=== PATIENT | male | born 1960 | race Two or more races ===

== ENCOUNTER 2019-07-02 03:35 | Emergency (ER) | payer OTHER ==
[~2019-07-02] VITALS: Ht 177.8 cm; Wt 76.7 kg
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
--- NOTE | 2019-07-02 03:52 | NUR ---
MANAGER FREELANCE AT BEDSIDE FOR LABS
[2019-07-02 03:58] LABS: BASOPHILS # (AUTO) 0.1 /CMM (0.0-0.2); BASOPHILS % (AUTO) 0.8 % (0.0-2.0); EOSINOPHILS % (AUTO) 0.4 % (0.0-6.0); HEMATOCRIT 44 % (39-51); HEMOGLOBIN 14.5 g/dL (13.5-17.5); LYMPHOCYTES # (AUTO) 2.2 /CMM (0.8-4.8); LYMPHOCYTES % (AUTO) 24.1 % (20.0-44.0); MEAN CORPUSCULAR HGB CONC 33 g/dl (31.0-36.0); MEAN CORPUSCULAR VOLUME 105 fL (80-96); MONOCYTES # (AUTO) 0.7 /CMM (0.1-1.30); MONOCYTES % (AUTO) 8.1 % (2.0-12.0); NEUTROPHILS # (AUTO) 6.1 /CMM (1.8-8.9); NEUTROPHILS % (AUTO) 66.6 % (43.0-81.0); PLATELET COUNT (AUTO) 295 /CMM (150-450); RED BLOOD CELL COUNT(AUTO) 4.15 MIL/uL (4.5-6.0); WHITE BLOOD COUNT (AUTO) 9.1 K/uL (4.3-11.0)
[2019-07-02 04:06] LABS: CALCIUM, SERUM 8.8 mg/dL (8.5-10.1); CARBON DIOXIDE 12 mmol/L (21-32); CHLORIDE 102 mmol/L (98-107); CREATININE 1.3 mg/dL (0.6-1.3); GLUCOSE 292 mg/dL (74-106); POTASSIUM 4.5 mmol/L (3.5-5.1); SODIUM SERUM 139 mmol/L (136-145); UREA NITROGEN, BLOOD 17 mg/dL (7-18)
[2019-07-02 04:22] LABS: ALANINE AMINOTRANSFERASE 43 U/L (12-78); ALBUMIN 4.1 g/dL (3.4-5.0); ALCOHOL, BLOOD < 3 mg/dL (0-0); ALKALINE PHOSPHATASE 85 U/L (46-116); ASPARTATE AMINOTRANSFERASE 40 U/L (15-37); BILIRUBIN,DIRECT 0.2 mg/dL (0.0-0.2); BILIRUBIN,TOTAL 0.9 mg/dL (0.2-1.0); TOTAL PROTEIN, SERUM 7.6 g/dL (6.4-8.2)
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
[2019-07-02 04:33] LABS: ACETAMINOPHEN 0 ug/ml (10-30); SALICYLATE 0.9 mg/dL (2.8-20.0)
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
--- NOTE | 2019-07-02 04:50 | NUR ---
NOTED ABRASION ON LEFT WRIST DUE TO HAND CUFFS.
[2019-07-02 04:54] LABS: APPEARANCE,URINE Clear (CLEAR); BILIRUBIN,URINE Negative (NEGATIVE); BLOOD, URINE Moderate Ery/uL (NEGATIVE); COLOR,URINE Yellow (YELLOW); KETONES,URINE 15 (NEGATIVE); LEUKOCYTE ESTERASE ,URINE Negative (NEGATIVE); NITRITE, URINE Positive (NEGATIVE); PROTEIN,URINE 100 mg/dl (NEGATIVE); UGLUCOSE 250 MG/DL mg/dL (NEGATIVE)
--- NOTE | 2019-07-02 05:12 | NUR ---
Patient is resting comfortably in bed. Easily aroused.
--- NOTE | 2019-07-02 05:30 | NUR ---
RESTRAIN REDUCED TO ONE POINT PT COAPERATIVE AND COMPLIANT. NO ACUTE DISTRESS NOTED.
[2019-07-02 05:51] LABS: BACTERIA,URINE Few /HPF (None Seen); RBC,URINE 21-50 /HPF (0-2); SQUAMOUS EPITHELIAL CELL,UR Rare /HPF (None Seen); WBC,URINE TOO NUMEROUS TO COUN /HPF (0-3)
--- NOTE | 2019-07-02 06:27 | NUR ---
Patient is resting comfortably in bed. Easily aroused.
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
[2019-07-02] MEDS ORDERED: LORAZEPAM INJ 2 MG/ML VIAL ONE (06:36)
[2019-07-02] MEDS ORDERED: LORAZEPAM INJ 2 MG/ML VIAL IM ONE (07:00)
--- NOTE | 2019-07-02 07:37 | NUR ---
REPORT GIVEN TO KASEY FLOWERS FOR MADDY
--- NOTE | 2019-07-02 13:00 | NUR ---
PT SLEEPING. EASILY AROUSABLE. VERBALLY RESPONSIVE. DENIES SI/HI AT THIS TIME. DR KAN AWARE.
--- NOTE | 2019-07-02 13:06 | NUR ---
CALLED PRESLEY CARLIN.
--- NOTE | 2019-07-02 14:31 | NUR ---
ART BARREL HEADER AT BEDSIDE FOR PSYCH EVAL.
--- NOTE | 2019-07-02 16:28 | NUR ---
PT SLEEPING, ON MONITOR. EASILY AROUSABLE. WILL CONTINUE TO MONITOR.
--- NOTE | 2019-07-02 17:25 | NUR ---
PT AWAKE. AMBULATORY W. STEADY GAIT. WAS PROVIDED W/ MEAL AND ORAL FLUIDS. DR CHRISTINE IN TO SEE PATIENT AND IS CLEARED FOR DISCHARGE.
[2019-07-02 17:34] VITALS: BP 133/85
== END 2019-07-02 17:35 | disposition home or self-care (01) ==
LOC: ER 03:37
DX: F15.90 Other stimulant use, unspecified, uncomplicated (principal)
CPT/HCPCS: 36415; 80048; 80076; 80305; 80307; 80329; 81001; 85025; 87086; 96372; 99283; G0480; J2060; 81000-TC; 87186-TC